=== PATIENT | female | born 1970 | race African-American/Black ===

== ENCOUNTER 2016-12-16 21:14 | Emergency (ER) | payer BC ==
[~2016-12-16] VITALS: Ht 149.9 cm; Wt 79.4 kg
[2016-12-16] MEDS ORDERED: IV NORMAL SALINE 1000ML BAG 1,000 ML IV ONE ×2 (21:45→22:15)
[2016-12-16] MEDS ORDERED: ALBUTEROL SULFATE 2.5 MG/3 ML NEBU. NEB ONE (21:45)
[2016-12-16] MEDS ORDERED: LIDOCAINE 4% KIT 4 ML SOLUTION. TP ONE (21:45)
[2016-12-16] MEDS ORDERED: KETOROLAC TROMETHAMINE 30 MG/ML SYRINGE. IV ONE (21:45)
--- NOTE | 2016-12-16 21:49 | PHYS DOC ---
Past Medical History Past Medical History: Other Additional Past Medical Histor: tachycardia Past Surgical History: Cholecystectomy Alcohol Use: None Drug Use: None Adult General Chief Complaint Chief Complaint: CHEST WALL PAIN HPI HPI This is a 46 yo female who is presenting with worsening cough and dyspnea for the last 5 days. Patient was seen on Saturday by her primary care physician and prescribed azithromycin, prednisone, phenergan with codeine cough syrup and a combivent inhaler. She states she has had no relief with this treatment plan. She states she has shortness of breath with exertion and has significant chest pain with cough. She denies any asthma or COPD.. She does states she has history of a rapid heart rate but denies any significant cardiac disease. Review of Systems Review of Systems Constitutional: Denies fever or chills [] Eyes: Denies change in visual acuity, redness, or eye pain [] HENT: Denies nasal congestion or sore throat [] Respiratory: Has cough, has shortness of breath [] Cardiovascular: No additional information not addressed in HPI [] GI: Denies abdominal pain, nausea, vomiting, bloody stools or diarrhea [] : Denies dysuria or hematuria [] Musculoskeletal: Denies back pain or joint pain [] Integument: Denies rash or skin lesions [] Neurologic: Denies headache, focal weakness or sensory changes [] Endocrine: Denies polyuria or polydipsia [] Current Medications Current Medications Current Medications Medications (Trade) Dose Ordered Sig/Janel Start Time Stop Time Status Last Admin Dose Admin Albuterol Sulfate (Ventolin Neb Soln) 2.5 mg 1X ONCE 12/16/16 21:45 12/16/16 21:46 DC 12/16/16 21:43 2.5 MG Ketorolac Tromethamine 30 mg 30 mg 1X ONCE 12/16/16 21:45 12/16/16 21:46 DC 12/16/16 21:56 30 MG Lidocaine HCl (Lta Kit) 4 ml 1X ONCE 12/16/16 21:45 12/16/16 21:46 DC 12/16/16 21:55 4 ML Sodium Chloride (Iv Sodium Chloride 0.9% 1000ml Bag) 1,000 ml @ 1,000 mls/hr 1X ONCE 12/16/16 22:15 12/16/16 23:14 Allergies Allergies Allergies Coded Allergies Type Severity Reaction Last Updated Verified No Known Drug Allergies 12/16/16 No Physical Exam Physical Exam Constitutional: Well developed, well nourished, mild distress, non-toxic appearance. [] HENT: Normocephalic, atraumatic, bilateral external ears normal, oropharynx moist, no oral exudates, nose normal. [] Eyes: PERRLA, EOMI, conjunctiva normal, no discharge. [] Neck: Normal range of motion, no tenderness, supple, no stridor. [] Cardiovascular:Heart rate regular rhythm, no murmur [] Lungs & Thorax: Bilateral breath sounds clear to auscultation [] Abdomen: Bowel sounds normal, soft, no tenderness, no masses, no pulsatile masses. [] Skin: Warm, dry, no erythema, no rash. [] Back: No tenderness, no CVA tenderness. [] Extremities: No tenderness, no cyanosis, no clubbing, ROM intact, no edema. [] Neurologic: Alert and oriented X 3, normal motor function, normal sensory function, no focal deficits noted. [] Psychologic: Affect normal, judgement normal, mood normal. [] Current Patient Data Vital Signs Vital Signs Date Time Temp Pulse Resp B/P Pulse Ox O2 Delivery O2 Flow Rate FiO2 12/16/16 22:15 104 24 122/60 96 Room Air 12/16/16 21:21 98.7 98.7 Lab Values Laboratory Tests Test 12/16/16 21:39 12/16/16 21:42 Influenza Type A Antigen Positive (NEGATIVE) Influenza Type B Antigen Negative (NEGATIVE) White Blood Count 12.1x10^3/uL (4.0-11.0) H Red Blood Count 3.98x10^6/uL (3.50-5.40) Hemoglobin 12.3g/dL (12.0-15.5) Hematocrit 36.9% (36.0-47.0) Mean Corpuscular Volume 93fL (79-100) Mean Corpuscular Hemoglobin 31pg (25-35) Mean Corpuscular Hemoglobin Concent 33g/dL (31-37) Red Cell Distribution Width 13.9% (11.5-14.5) Platelet Count 250x10^3/uL (140-400) Neutrophils (%) (Auto) 76% (31-73) H Lymphocytes (%) (Auto) 16% (24-48) L Monocytes (%) (Auto) 7% (0-9) Eosinophils (%) (Auto) 0% (0-3) Basophils (%) (Auto) 1% (0-3) Neutrophils # (Auto) 9.2x10^3uL (1.8-7.7) H Lymphocytes # (Auto) 2.0x10^3/uL (1.0-4.8) Monocytes # (Auto) 0.9x10^3/uL (0.0-1.1) Eosinophils # (Auto) 0.0x10^3/uL (0.0-0.7) Basophils # (Auto) 0.1x10^3/uL (0.0-0.2) D-Dimer (Karin) 0.49ug/mlFEU (0.00-0.50) Sodium Level 136mmol/L (136-145) Potassium Level 3.6mmol/L (3.5-5.1) Chloride Level 101mmol/L (98-107) Carbon Dioxide Level 28mmol/L (21-32) Anion Gap 7 (6-14) Blood Urea Nitrogen 10mg/dL (7-20) Creatinine 0.8mg/dL (0.6-1.0) Estimated GFR (Cockcroft-Gault) 93.4 Glucose Level 193mg/dL (70-99) H Calcium Level 8.5mg/dL (8.5-10.1) Laboratory Tests 12/16/16 21:42 Laboratory Tests 12/16/16 21:42 EKG EKG EKG as interpreted by me shows a sinus tachycardia with a rate of 110 bpm. This EKG was difficult to obtain secondary to the patient having significant amount of coughing. There do not appear to be any acute ischemic changes on this EKG. Radiology/Procedures Radiology/Procedures Portable 1 view of the chest as interpreted by me does not reveal an acute cardiopulmonary process Course & Med Decision Making Course & Med Decision Making Pertinent Labs and Imaging studies reviewed. (See chart for details) This 46 year old female with persisting cough and dyspnea will have laboratory workup including x-ray and EKG. I deem her to be low risk for any cardiac disease based upon her history. I also deem her to be low risk utilizing the Well's Criteria for PE. I will be giving her a nebulizer treatment with lidocaine and albuterol and obtaining a d-dimer to rule out a PE, due to the fact that she is persistently tachycardic upon arrival. I will reassess her after breathing treatment and laboratory workup. This patient had flu swab that was positive for influenza type A. She is well outside the window to treat with Tamiflu. She'll be given multiple fluid boluses for her tachycardia to rehydrate her. After nebulized lidocaine and albuterol the patient feels much improved and her cough has dramatically lessened. Her laboratory workup was unremarkable. Her chest film did not reveal any acute cardio pulmonary process. Upon my reassessment, the patient feels much improved after breathing treatment and nebulized lidocaine. Her tachycardia has resolved after fluids and breathing treatments. I will be discharging her home with strict instruction to rest and be judicious with fluid intake and to continue taking her inhaler as needed for her breathing. I will also write her a prescription for Tessalon Perles. I stated she can continue taking her phenergan with codeine cough syrup as needed but to discontinue her antibiotic. I gave her instruction to follow with Dr. Houston in 2 days. She was discharged without incident feeling much improved. Dragon Disclaimer Dragon Disclaimer This electronic medical record was generated, in whole or in part, using a voice recognition dictation system. Departure Departure Impression: Primary Impression: Influenza A Additional Impression: Cough Disposition: 01 HOME, SELF-CARE Condition: IMPROVED Referrals: CARMEN MCCAIN MD Patient Instructions: Influenza A (H1N1) Additional Instructions: Please follow up with your primary doctor, Dr. Mccain, as instructed and take your medications as prescribed. Continue to drink plenty of fluids. Return to the ER if you develop any worsening of your symptoms. Scripts Benzonatate (Tessalon Perle)100 Mg [id number] Mg PO TID PRN COUGH #15 CAP Prov:TANNER MATT DO 12/16/16 Problem Qualifiers TANNER MATT DO Dec 16, 2016 21:49
[2016-12-16 21:52] LABS: BASO # 0.1 x10^3/uL (0.0-0.2); BASO % 1 % (0-3); EOS % 0 % (0-3); HEMATOCRIT 36.9 % (36.0-47.0); HEMOGLOBIN 12.3 g/dL (12.0-15.5); LYMPH % 16 % (24-48); MEAN CORPUSCULAR HEMOGLOBIN 31 pg (25-35); MEAN CORPUSCULAR HGB CONC 33 g/dL (31-37); MEAN CORPUSCULAR VOLUME 93 fL (79-100); MONO % 7 % (0-9); NEUT % 76 % (31-73); PLATELET COUNT 250 x10^3/uL (140-400); RED BLOOD COUNT 3.98 x10^6/uL (3.50-5.40); RED CELL DISTRIBUTION WIDTH 13.9 % (11.5-14.5); WHITE BLOOD COUNT 12.1 x10^3/uL (4.0-11.0)
[2016-12-16 22:01] LABS: OBC FLU VALID
[2016-12-16 22:01] LABS: CALCIUM 8.5 mg/dL (8.5-10.1); CREATININE 0.8 mg/dL (0.6-1.0); GFR 93.4; POTASSIUM 3.6 mmol/L (3.5-5.1)
[2016-12-16] MEDS ORDERED: BENZ100C PO (22:43)
[2016-12-16 22:45] VITALS: BP 118/65
--- NOTE | 2016-12-17 06:45 | EKG ---
[facility] [address] [place] [address] Test Date: 2016-12-16 Test Time: 21:33:40 Pat Name: JOI CARLIN Department: Room: Gender: F [employer]ated [employer]: : 1970 Requested By: TANNER MATT Order Number: [id number] Reading MD: Claudia Brock Measurements Intervals [place] Rate: 110 P: 42 MT: 140 QRS: 90 QRSD: 84 T: -13 QT: 322 QTc: 441 Interpretive Statements SINUS TACHYCARDIA QRS(T) CONTOUR ABNORMALITY CONSIDER ANTEROLATERAL MYOCARDIAL DAMAGE T ABNORMALITY IN INFERIOR LEADS ABNORMAL ECG RI6.01 No previous ECG available for comparison Electronically Signed On 12-18-2016 9:32:32 CLERK SUPERVISOR by Claudia Brock
--- NOTE | 2016-12-17 07:53 | RAD ---
Portable chest, 12/16/2016: History: Cough Comparison is made to a study from 08/23/2008. The heart size and pulmonary vascularity are normal. No pulmonary infiltrates are seen. There is no evidence of pleural fluid. IMPRESSION: No acute cardiopulmonary abnormality is detected.
== END 2016-12-16 23:16 | disposition home or self-care (01) ==
LOC: ER 21:14
DX: J10.1 Influenza due to other identified influenza virus with other respiratory manifestations (principal); R05 Cough; R00.0 Tachycardia, unspecified
CPT/HCPCS: 36415; 71010; 80048; 85027; 85379; 87804; 93005; 94640; 96361; 96374; 99285; J1885; J7030

== ENCOUNTER 2017-05-26 11:16 | Emergency (ER) | payer BC ==
[~2017-05-26] VITALS: Ht 149.9 cm; Wt 77.1 kg
[~2017-05-26 11:16] MED LIST: BENZ100C PO
[2017-05-26] MEDS ORDERED: IV NORMAL SALINE 1000ML BAG 1,000 ML IV SCH (11:51)
[2017-05-26] MEDS ORDERED: MORPHINE SULFATE 4 MG/ML DISP.SYRIN. IV/SQ PRN (12:00)
[2017-05-26] MEDS ORDERED: fentaNYL PF VIAL 100 MCG/2 ML VIAL IV PRN (12:00)
[2017-05-26] MEDS ORDERED: ONDANSETRON PF 4 MG/2 ML VIAL. IV ONE (12:00)
[2017-05-26] MEDS ORDERED: KETOROLAC TROMETHAMINE 30 MG/ML INJ. IV ONE (12:00)
[2017-05-26 12:08] LABS: BASO # 0.1 x10^3/uL (0.0-0.2); BASO % 1 % (0-3); EOS % 2 % (0-3); HEMATOCRIT 35.2 % (36.0-47.0); HEMOGLOBIN 12.3 g/dL (12.0-15.5); LYMPH # 3.3 x10^3/uL (1.0-4.8); LYMPH % 45 % (24-48); MEAN CORPUSCULAR HEMOGLOBIN 32 pg (25-35); MEAN CORPUSCULAR HGB CONC 35 g/dL (31-37); MEAN CORPUSCULAR VOLUME 92 fL (79-100); MONO % 9 % (0-9); NEUT % 44 % (31-73); PLATELET COUNT 346 x10^3/uL (140-400); RED BLOOD COUNT 3.82 x10^6/uL (3.50-5.40); RED CELL DISTRIBUTION WIDTH 14.3 % (11.5-14.5); WHITE BLOOD COUNT 7.4 x10^3/uL (4.0-11.0)
[2017-05-26 12:10] LABS: BILIRUBIN,URINE NEGATIVE (NEG); GLUCOSE,URINE NEGATIVE (NEG); NITRITE,URINE NEGATIVE (NEG); PROTEIN,URINE NEGATIVE (NEG-TRACE); UROBILINOGEN,URINE 0.2 mg/dL (0.2 mg/dL)
--- NOTE | 2017-05-26 12:13 | EKG ---
[facility] [address] [place] [address] Test Date: 2017-05-26 Test Time: 11:23:45 Pat Name: JOI CARLIN Department: Room: Gender: F Director Center: : 1970 Requested By: BEATRIS STRATTON Order Number: [id number] Reading MD: Measurements Intervals [place] Rate: 77 P: -13 OK: 156 QRS: 66 QRSD: 88 T: -13 QT: 374 QTc: 425 Interpretive Statements SINUS RHYTHM R-S TRANSITION ZONE IN V LEADS DISPLACED TO THE LEFT QRS(T) CONTOUR ABNORMALITY CONSIDER ANTEROSEPTAL MYOCARDIAL DAMAGE T ABNORMALITY IN INFERIOR LEADS RI6.01 Unconfirmed report No previous ECG available for comparison
--- NOTE | 2017-05-26 12:35 | RAD ---
AP PORTABLE CHEST Clinical Indication: Left-sided chest pain this morning. Comparison: AP chest 12/16/2016. Findings: The cardiomediastinal silhouette is normal. Lungs are clear. There is no pneumothorax. No pleural effusion is appreciated. There is no acute bone abnormality. IMPRESSION: No acute cardiopulmonary process.
--- NOTE | 2017-05-26 12:42 | PHYS DOC ---
Past Medical History Past Medical History: Other Additional Past Medical Histor: tachycardia Past Surgical History: Cholecystectomy Alcohol Use: None Drug Use: None Adult General Chief Complaint Chief Complaint: CHEST WALL PAIN HPI HPI Patient is a 46 year old female who presents with complaint of left-sided chest pain. Patient states that she woke with symptoms earlier this morning and states that for the past several hours she has had persistent symptoms. Patient states that the pain is along the left anterior portion of her chest and radiates towards her left shoulder. Patient states that she has had similar symptoms in the past due to chest wall muscle strain. Patient states that she had increased exertion yesterday as she had washed her car prior to onset of symptoms. Patient took ibuprofen at home with no relief in symptoms. Patient denies any associated nausea, vomiting, fever, shortness of breath, or diaphoresis. Patient denies any significant past medical history. Patient does admit to family history of heart disease, stating that she had an aunt who in her mid 40s of heart attack. The patient states that she has had stress testing several years ago which did not show any evidence of cardiac ischemia at that time. Patient states that her pain worsens when she takes a deep breath and with movement of the left upper extremity. Review of Systems Review of Systems Constitutional: Denies fever or chills [] Eyes: Denies change in visual acuity, redness, or eye pain [] HENT: Denies nasal congestion or sore throat [] Respiratory: Denies cough or shortness of breath [] Cardiovascular: Denies chest substernal chest pain or edema [] GI: Denies abdominal pain, nausea, vomiting, bloody stools or diarrhea [] : Denies dysuria or hematuria [] Musculoskeletal: Left-sided chest wall pain and shoulder pain [] Integument: Denies rash or skin lesions [] Neurologic: Denies headache, focal weakness or sensory changes [] Current Medications Current Medications Current Medications Medications (Trade) Dose Ordered Sig/Janel Start Time Stop Time Status Last Admin Dose Admin Fentanyl Citrate (Fentanyl 2ml Vial) 50 mcg PRN Q15MIN PRN 05/26/17 12:00 05/27/17 11:59 05/26/17 13:02 50 MCG Ketorolac Tromethamine (Toradol) 30 mg 1X ONCE 05/26/17 12:00 05/26/17 12:01 DC 05/26/17 12:10 30 MG Morphine Sulfate 4 mg PRN Q15MIN PRN 05/26/17 12:00 05/27/17 11:59 05/26/17 12:11 4 MG Ondansetron HCl (Zofran) 4 mg 1X ONCE 05/26/17 12:00 05/26/17 12:01 DC 05/26/17 12:08 4 MG Sodium Chloride 1,000 ml @ 1,000 mls/hr Q1H 05/26/17 11:51 05/26/17 12:50 DC 05/26/17 12:11 1,000 MLS/HR Allergies Allergies Allergies Coded Allergies Type Severity Reaction Last Updated Verified No Known Drug Allergies 12/16/16 No Physical Exam Physical Exam Constitutional: Alert, afebrile, appears in moderate discomfort. [] HENT: Normocephalic, atraumatic, bilateral external ears normal, oropharynx moist, no oral exudates, nose normal. [] Eyes: PERRLA, EOMI, conjunctiva normal, no discharge. [] Neck: Normal range of motion, no tenderness, supple, no stridor. [] Cardiovascular:Heart rate regular rhythm, no murmur [] Lungs & Thorax: Bilateral breath sounds clear to auscultation, left anterior chest wall tenderness to palpation causing reproducible pain [] Abdomen: Bowel sounds normal, soft, no tenderness, no masses, no pulsatile masses. [] Skin: Warm, dry, no erythema, no rash. [] Back: No tenderness, no CVA tenderness. [] Extremities: Tenderness with range of motion at left shoulder, no cyanosis, no clubbing, ROM intact, no edema. [] Neurologic: Alert and oriented X 3, normal motor function, normal sensory function, no focal deficits noted. [] Current Patient Data Vital Signs Vital Signs Date Time Temp Pulse Resp B/P (MAP) Pulse Ox O2 Delivery O2 Flow Rate FiO2 05/26/17 13:02 17 100 Room Air 05/26/17 11:30 98.4 81 158/78 (104) 98.4 Lab Values Laboratory Tests Test 05/26/17 11:07 05/26/17 11:45 05/26/17 12:00 05/26/17 12:25 POC Urine HCG, Qualitative Hcg negative (Negative) White Blood Count 7.4 x10^3/uL (4.0-11.0) Red Blood Count 3.82 x10^6/uL (3.50-5.40) Hemoglobin 12.3 g/dL (12.0-15.5) Hematocrit 35.2 % (36.0-47.0) L Mean Corpuscular Volume 92 fL (79-100) Mean Corpuscular Hemoglobin 32 pg (25-35) Mean Corpuscular Hemoglobin Concent 35 g/dL (31-37) Red Cell Distribution Width 14.3 % (11.5-14.5) Platelet Count 346 x10^3/uL (140-400) Neutrophils (%) (Auto) 44 % (31-73) Lymphocytes (%) (Auto) 45 % (24-48) Monocytes (%) (Auto) 9 % (0-9) Eosinophils (%) (Auto) 2 % (0-3) Basophils (%) (Auto) 1 % (0-3) Neutrophils # (Auto) 3.2 x10^3uL (1.8-7.7) Lymphocytes # (Auto) 3.3 x10^3/uL (1.0-4.8) Monocytes # (Auto) 0.6 x10^3/uL (0.0-1.1) Eosinophils # (Auto) 0.1 x10^3/uL (0.0-0.7) Basophils # (Auto) 0.1 x10^3/uL (0.0-0.2) Urine Collection Type Unknown Urine Color Yellow Urine Clarity Clear Urine pH 7.0 Urine Specific [place] <=1.005 Urine Protein Negative mg/dL (NEG-TRACE) Urine Glucose (UA) Negative mg/dL (NEG) Urine Ketones (Stick) Negative mg/dL (NEG) Urine Blood Negative (NEG) Urine Nitrite Negative (NEG) Urine Bilirubin Negative (NEG) Urine Urobilinogen Dipstick 0.2 mg/dL (0.2 mg/dL) Urine Leukocyte Esterase Moderate (NEG) Urine RBC 0 /HPF (0-2) Urine WBC 20-40 /HPF (0-4) Urine Squamous Epithelial Cells Mod /LPF Urine Bacteria Few /HPF (0-FEW) Sodium Level 137 mmol/L (136-145) Potassium Level 3.8 mmol/L (3.5-5.1) Chloride Level 104 mmol/L (98-107) Carbon Dioxide Level 26 mmol/L (21-32) Anion Gap 7 (6-14) Blood Urea Nitrogen 7 mg/dL (7-20) Creatinine 0.6 mg/dL (0.6-1.0) Estimated GFR (Cockcroft-Gault) 130.2 Glucose Level 87 mg/dL (70-99) Calcium Level 8.3 mg/dL (8.5-10.1) L Magnesium Level 1.9 mg/dL (1.8-2.4) Total Bilirubin 0.5 mg/dL (0.2-1.0) Direct Bilirubin 0.1 mg/dL (0.0-0.2) Aspartate Amino Transferase (AST) 17 U/L (15-37) Alanine Aminotransferase (ALT) 16 U/L (14-59) Alkaline Phosphatase 69 U/L (46-116) Creatine Kinase 185 U/L (26-192) Creatine Kinase MB (Mass) < 0.5 ng/mL (0.0-3.6) Creatine Kinase MB Relative Index 0.3 % (0-4) Troponin I Quantitative < 0.017 ng/mL (0.000-0.055) QU-Akb-H-Type Natriuretic Peptide 43 pg/mL (0-124) Total Protein 7.6 g/dL (6.4-8.2) Albumin 3.2 g/dL (3.4-5.0) L Laboratory Tests 05/26/17 11:45 Laboratory Tests 05/26/17 12:25 EKG EKG Interpreted by me: Heart rate 77, sinus rhythm, normal intervals, normal axis, no acute ST/T-wave abnormalities present [] Radiology/Procedures Radiology/Procedures [facility] [address] [place] [address] IMAGING REPORT Signed PATIENT: JOI CARLIN ACCOUNT: [id number] : 1970 LOCATION: ER AGE: 46 SEX: F EXAM STATUS: PRE ER ORD. PHYSICIAN: BEATRIS STRATTON MD REASON: chest pain PROCEDURE: PORTABLE CHEST 1V AP PORTABLE CHEST Clinical Indication: Left-sided chest pain this morning. Comparison: AP chest 12/16/2016. Findings: The cardiomediastinal silhouette is normal. Lungs are clear. There is no pneumothorax. No pleural effusion is appreciated. There is no acute bone abnormality. IMPRESSION: No acute cardiopulmonary process. DICTATED and SIGNED BY: SIL ALVARADO MD DATE: 05/26/17 1229 CC: BEATRIS STRATTON MD; CARMEN MUELLER MD ~ [] Course & Med Decision Making Course & Med Decision Making Pertinent Labs and Imaging studies reviewed. (See chart for details) The patient was given morphine and Toradol in the emergency department with improvement in patient's symptoms. The patient's cardiac enzymes appear negative at this time. The patient's onset of symptoms has been greater than 6 hours from her blood draw, thus one set of cardiac enzymes is sufficient at this time. The patient's symptoms are atypical and consistent with acute chest wall pain. I have low suspicion for acute cardiac etiology of patient's chest pain at this time. The patient will be discharged with prescriptions for Flexeril and Naprosyn. Advised follow-up in 2 days with the patient's primary doctor. To add cardioprotection, the patient was recommended to take a daily baby aspirin in addition to her regimen. Advised return emergency department for any worsening symptoms. Patient voiced understanding and in agreement with treatment plan. Dragon Disclaimer Dragon Disclaimer This electronic medical record was generated, in whole or in part, using a voice recognition dictation system. Departure Departure Impression: Primary Impression: Acute chest wall pain Disposition: 01 HOME, SELF-CARE Condition: IMPROVED Referrals: CARMEN MUELLER MD (PCP) Patient Instructions: Chest Wall Pain Additional Instructions: Follow-up with your primary doctor in 2 days for reevaluation. Be sure to take a daily baby aspirin until you have been reevaluated. Return to emergency department for any worsening symptoms. Scripts Cyclobenzaprine Hcl (CYCLOBENZAPRINE HCL) 10 Mg Tablet 1 TAB PO TID Y for MUSCLE PAIN, #30 TAB Prov: BEATRIS STRATTON MD 05/26/17 Naproxen (NAPROSYN) 500 Mg Tablet 1 TAB PO BID, #20 TAB 0 Refills Prov: BEATRIS STRATTON MD 05/26/17 BEATRIS STRATTON MD May 26, 2017 12:42
[2017-05-26 12:44] LABS: CALCIUM 8.3 mg/dL (8.5-10.1); CREATININE 0.6 mg/dL (0.6-1.0); GFR 130.2; POTASSIUM 3.8 mmol/L (3.5-5.1)
[2017-05-26 12:48] LABS: BACTERIA,URINE FEW /HPF (0-FEW); RBC,URINE 0 /HPF (0-2); SQUAMOUS EPITHELIAL CELL,UR MOD /LPF; WBC,URINE 20-40 /HPF (0-4)
[2017-05-26 12:57] LABS: ALBUMIN 3.2 g/dL (3.4-5.0); DIRECT BILIRUBIN 0.1 mg/dL (0.0-0.2); MAGNESIUM 1.9 mg/dL (1.8-2.4); TOTAL BILIRUBIN 0.5 mg/dL (0.2-1.0); TOTAL PROTEIN 7.6 g/dL (6.4-8.2)
[2017-05-26 13:03] LABS: CREATINE KINASE 185 U/L (26-192)
[2017-05-26 13:04] LABS: CKMB MASS < 0.5 ng/mL (0.0-3.6)
[2017-05-26 13:30] VITALS: BP 142/69
[2017-05-26] MEDS ORDERED: CYCL10TA2 PO (13:35)
[2017-05-26] MEDS ORDERED: NAPR500T PO (13:35)
== END 2017-05-26 13:45 | disposition home or self-care (01) ==
LOC: ER 11:16
DX: R07.89 Other chest pain (principal); M25.512 Pain in left shoulder; Z82.49 Family history of ischemic heart disease and other diseases of the circulatory system
CPT/HCPCS: 36415; 71010; 80048; 80076; 81001; 81025; 82553; 83735; 83880; 84484; 85027; 87086; 93005; 96361; 96374; 96375; 99285; J1885; J2270; J2405; J3010; J7030